=== PATIENT | female | born 1990 | race Caucasian/White ===

== ENCOUNTER 2016-11-30 15:57 | Emergency (ER) | payer OTHER ==
[2016-11-30 16:02] VITALS: BP 131/79; PULSE 83; RESP 20; TEMP 98.5
--- NOTE | 2016-11-30 16:16 | ED ---
General Adult HPI - General Chief complaint: Dental/Oral Stated complaint: Oral Pain Time Seen by Provider: 11/30/16 16:03 Source: patient, RN notes reviewed Mode of arrival: ambulatory Limitations: no limitations - History of Present Illness Initial comments: patient 26-year-old female who presents emergency room today with chief complaint of increased dental pain. Patient does admit to pain to tooth #31. Patient admits that she was on antibiotics. She states she believes it was a penicillin. She states she finished this a week ago she's been off for last 3 days and now the pain is started over the last 2 days. Patient denies drainage or discharge. She denies any other complaints or symptoms. States using ibuprofen with little relief the symptoms. Patient denies any recent fever, chills, shortness of breath, chest pain, back pain, abdominal pain, nausea or vomiting, numbness or tingling, dysuria or hematuria, constipation or diarrhea, headaches or visual changes, or any other complaints. - Related Data Previous Rx's Medication Instructions Recorded Acetaminophen-Codeine 300-30mg 1 each PO Q6H PRN #10 tablet 11/30/16 [Tylenol #3] Clindamycin HCl [Cleocin] 300 mg PO Q8H 10 Days 11/30/16 Allergies Allergy/AdvReac Type Severity Reaction Status Date / Time No Known Allergies Allergy Verified 11/30/16 16:02 Review of Systems ROS Statement: Those systems with pertinent positive or pertinent negative responses have been documented in the HPI. ROS Other: All systems not noted in ROS Statement are negative. Past Medical History Additional Past Medical History / Comment(s): migraines, psoriasis History of Any Multi-Drug Resistant Organisms: None Reported Additional Past Surgical History / Comment(s): wisdom teeth Past Psychological History: Anxiety Smoking Status: Current every day smoker Past Alcohol Use History: None Reported Past Drug Use History: None Reported General Exam - General Exam Comments Initial Comments: General: The patient is awake and alert, in no distress, and does not appear acutely ill. Eye: Pupils are equal, round and reactive to light, extra-ocular movements are intact. No nystagmus. There is normal conjunctiva bilaterally. No signs of icterus. Ears, nose, mouth and throat: There are moist mucous membranes and no oral lesions. tender palpation over tooth #31. No sign of abscess. Uvula midline and swallows without difficulty. Neck: The neck is supple, there is no tenderness or JVD. Cardiovascular: There is a regular rate and rhythm. No murmur, rub or gallop is appreciated. Respiratory: Lungs are clear to auscultation, respirations are non-labored, breath sounds are equal. No wheezes, stridor, rales, or rhonchi. Musculoskeletal: Normal ROM, no tenderness. Strength 5/5. Sensation intact. Pulses equal bilaterally 2+. Neurological: A&O x 3. CN II-XII intact, There are no obvious motor or sensory deficits. Coordination appears grossly intact. Speech is normal. Skin: Skin is warm and dry and no rashes or lesions are noted. Psychiatric: Cooperative, appropriate mood & affect, normal judgment Limitations: no limitations Course Vital Signs 11/30/16 15:59 Temperature 98.5 F Pulse Rate 83 Respiratory 20 Rate Blood Pressure 131/79 O2 Sat by Pulse 100 Oximetry Medical Decision Making - Medical Decision Making patient placed on clindamycin as she was recently on penicillin. 3 days ago. Patient will be given short prescription of Tylenol with codeine to use along with her ibuprofen. She is advised follow-up dentist over the next 2 days. Disposition Clinical Impression: Pain, dental Disposition: HOME SELF-CARE Condition: Good Instructions: Toothache (ED) Additional Instructions: Please use medication as discussed. Please follow-up with the dentist over the next 2 days. Please return to emergency room if the symptoms increase or worsen or for any other concerns. Prescriptions: Acetaminophen-Codeine 300-30mg [Tylenol #3] 1 each PO Q6H PRN #10 tablet PRN Reason: Pain Clindamycin HCl [Cleocin] 300 mg PO Q8H 10 Days Time of Disposition: 16:15
== END 2016-11-30 16:15 | disposition home or self-care (01) ==
LOC: EC 15:57
DX: K08.89 Other specified disorders of teeth and supporting structures (principal); F17.200 Nicotine dependence, unspecified, uncomplicated
CPT/HCPCS: 99282

== ENCOUNTER 2020-06-25 10:14 | Inpatient (IN) | payer OTHER ==
[2020-06-25] MEDS ORDERED: LACTATED RINGERS 1,000 ML IV ONE (11:01)
[2020-06-25] MEDS ORDERED: CITRIC ACID-SODIUM CITRATE 15 ML CUP PO ONE (11:01)
[2020-06-25 11:25] LABS: Basophils % (A) 0 %; Eosinophils % (A) 1 %; HCT 35.3 % (34.0-46.0); HGB 11.9 gm/dL (11.4-16.0); Lymphocytes # (A) 1.9 k/uL (1.0-4.8); Lymphocytes % (A) 19 %; MCH 29.5 pg (25.0-35.0); MCHC 33.7 g/dL (31.0-37.0); MCV 87.4 fL (80.0-100.0); Monocytes # (A) 0.6 k/uL (0-1.0); Monocytes % (A) 6 %; Neutrophils # (A) 7.1 k/uL (1.3-7.7); Neutrophils % (A) 73 %; Platelet Count 153 k/uL (150-450); RBC 4.03 m/uL (3.80-5.40); WBC 9.7 k/uL (3.8-10.6)
[2020-06-25] MEDS ORDERED: KETOROLAC 15 MG/ML 1 ML VIAL ONE (11:55)
[2020-06-25] MEDS ORDERED: ONDANSETRON 4 MG/2 ML VIAL ONE (11:55)
[2020-06-25] MEDS ORDERED: fentaNYL (PF) 50 MCG/ML 2 ML AMP ONE (11:55)
[2020-06-25] MEDS ORDERED: PROPOFOL 10 MG/ML 20 ML VIAL IV ONE (11:55)
[2020-06-25] MEDS ORDERED: MIDAZOLAM 2 MG/2 ML VIAL ONE (11:55)
[2020-06-25] MEDS ORDERED: NALBUPHINE 10 MG/ML (1 ML AMP) ONE (11:55)
[2020-06-25] MEDS ORDERED: MORPHINE SULFATE 2 MG/ML SYRINGE IVP PRN (12:22)
[2020-06-25] MEDS ORDERED: ONDANSETRON 4 MG/2 ML VIAL IVP PRN (12:22)
[2020-06-25] MEDS ORDERED: NALOXONE 0.4 MG/ML 1 ML VIAL IV PRN (12:22)
[2020-06-25] MEDS ORDERED: diphenhydrAMINE 50 MG/ML 1 ML VIAL IVP PRN ×2 (12:22→12:34)
--- NOTE | 2020-06-25 12:25 | P.ANPRN ---
Procedure Note - Anesthesia - Epidural/Spinal Spinal Time Out Performed: Yes Date of Procedure: 06/25/20 Procedure Start Time: 12:08 Procedure Stop Time: 12:18 Location of Patient: OB Indication: Acute Post-Operative Pain Sedation Type: Sedate with meaningful contact maintained Preparation: Sterile Dressing Position: Sitting Catheter: None Needle Guage: 25 Injectate: Other (Duramorph 300mcg) Blood Aspirated: No Pain Paresthesia on Injection Noted: No Events: Uneventful and Well Tolerated
[2020-06-25] MEDS ORDERED: ACETAMINOPHEN TAB 325 MG TAB PO PRN (12:34)
[2020-06-25] MEDS ORDERED: SIMETHICONE 80 MG CHEWABLE PO PRN (12:34)
[2020-06-25] MEDS ORDERED: diphenhydrAMINE 25 MG CAP PO PRN (12:34)
[2020-06-25] MEDS ORDERED: METOCLOPRAMIDE 5 MG/ML 2 ML VIAL IVP PRN (12:34)
[2020-06-25] MEDS ORDERED: ZOLPIDEM 5 MG TAB PO PRN (12:34)
[2020-06-25] MEDS ORDERED: diphenhydrAMINE 50 MG CAP PO PRN (12:34)
[2020-06-25] MEDS ORDERED: LANOLIN CREAM 5 GM TUBE TOPICAL PRN (12:34)
--- NOTE | 2020-06-25 12:38 | P.HPOB ---
History of Present Illness H&P Date: 06/25/20 Chief Complaint: intermittent tachycardia 29-year-old G 3 P2 presented at 37 weeks and 6 days to my office for a routine NST due to her history of an abnormal quad screen. On the NST there were some time to report sharp nurses having bradycardia or tachycardia or picking at the maternal heart rate. She was sent over to labor and delivery for prolonged monitoring. When she arrived baseline was 1:30 with moderate variability and accelerations but she does have some runs of tachycardia up to 240. Due to her gestational status and the tachycardia she will undergo a repeat low transverse with tubal ligation. Review of Systems All systems: negative Constitutional: Denies chills, Denies fever Eyes: denies blurred vision, denies pain Ears, nose, mouth and throat: Denies headache, Denies sore throat Cardiovascular: Denies chest pain, Denies shortness of breath Respiratory: Denies cough Gastrointestinal: Denies abdominal pain, Denies diarrhea, Denies nausea, Denies vomiting Genitourinary: Denies dysuria, Denies hematuria Musculoskeletal: Denies myalgias Integumentary: Denies pruritus, Denies rash Neurological: Denies numbness, Denies weakness Psychiatric: Denies anxiety, Denies depression Endocrine: Denies fatigue, Denies weight change Past Medical History Past Medical History: Asthma Additional Past Medical History / Comment(s): migraines, psoriasis. OB history: She's had 2 previous sections this is her third and she had care with me. She did have an abnormal quad screen was followed with [facility] as well. BPP was 8 out of 8 earlier this week. History of Any Multi-Drug Resistant Organisms: None Reported Past Surgical History: Section Additional Past Surgical History / Comment(s): wisdom teeth Past Anesthesia/Blood Transfusion Reactions: No Reported Reaction Past Psychological History: Anxiety Smoking Status: Current every day smoker Past Alcohol Use History: None Reported Past Drug Use History: None Reported - Past Family History Father Family Medical History: No Reported History Medications and Allergies Home Medications Medication Instructions Recorded Confirmed Type No Known Home Medications 06/25/20 06/25/20 History Allergies Allergy/AdvReac Type Severity Reaction Status Date / Time No Known Allergies Allergy Verified 06/25/20 10:36 Exam Osteopathic Statement: *. No significant issues noted on an osteopathic structural exam other than those noted in the History and Physical/Consult. Vital Signs Temp Pulse Resp BP Pulse Ox 06/25/20 11:01 97.9 F 85 18 109/73 98 Intake and Output 06/24/20 06/25/20 06/25/20 22:59 06:59 14:59 Other: Weight 70.76 kg Heart: Regular rate and rhythm Lungs: Clear to auscultation bilaterally Abdomen: Soft, nontender Extremities: Negative Homans sign Results Result Diagrams: 06/25/20 11:03 Assessment and Plan (1) tachycardia Current Visit: Yes Status: Acute Code(s): DGN2027 - SNOMED Code(s): 236241697 (2) Previous section Current Visit: Yes Status: Acute Code(s): Z98.891 - HISTORY OF UTERINE SCAR FROM PREVIOUS SURGERY SNOMED Code(s): 610071309 (3) Family planning Current Visit: Yes Status: Acute Code(s): Z30.09 - ENCOUNTER FOR OTH GENERAL CNSL AND ADVICE ON CONTRACEPTION SNOMED Code(s): 300542725 Plan: 1. RLTCS with TL 2. ammonia refrigeration worker is notified and present
--- NOTE | 2020-06-25 12:43 | P.OP ---
Date of Procedure: 06/25/20 Preoperative Diagnosis: 1. tachycardia 2. previous 3. family planning 4. abnormal quad screen Postoperative Diagnosis: 1. tachycardia 2. previous 3. family planning 4. abnormal quad Procedure(s) Performed: Repeat low transverse with tubal ligation Anesthesia: spinal Surgeon: Mell Carlos Angio Technologist #1: Michael Tee Estimated Blood Loss (ml): 300 IV fluids (ml): 500 Urine output (ml): 200 Pathology: other (Placenta, bilateral fallopian tubal segments) Condition: stable Disposition: floor Operative Findings: Viable male, Apgars 8, 9, weight 6 lbs. 8 oz. Description of Procedure: Patient was taken to the operating room where spinal anesthesia was found be adequate. She was prepped and draped in normal sterile fashion in dorsal supine position with a leftward tilt. Pfannenstiel skin incision was made the scalpel and carried through to the underlying layer of fascia with the scalpel. Fascia was incised in midline and carried bilaterally with the Alexander scissors. The superior aspect of the fascial incision was grasped with Bhanu clamps elevated and the underlying rectus muscles dissected off with the Alexander's. Attention was then turned to inferior aspect of same incision which in a similar fashion was grasped tented up and the underlying rectus muscles dissected off with the Alexander's. The rectus muscles were the midline and the peritoneum was identified tented up and entered sharply with the scalpel. The incision was extended superiorly and inferiorly with good visualization of the bladder. The bladder blade was inserted and the vesicouterine peritoneum was incised the Metzenbaums then carried bilaterally and bladder flap created digitally. A low transverse incision was then made on the uterus with the scalpel. This was carried bilaterally and digital manner. 's head delivered atraumatically, nose and mouth bulb suctioned, cord clamped and cut, handed off to waiting nurses. Apgars 8,9, weight 6 lbs. 8 oz. Placenta delivered manually, intact with three-vessel cord. The uterus is exteriorized and cleared of all clots and debris. The uterine incision was closed with 0 Vicryl in a running locked fashion. Second layer of the same sutures used in imbricating fashion to obtain excellent hemostasis. Both ovaries and tubes appeared normal. The right fallopian tube was grasped with a hemostat and a window was made in mesosalpinx. The right fallopian tube was doubly ligated and a section was removed, pedicles cauterized with the Bovie. The left fallopian tube was gras ped with a hemostat and a window was made in the mesosalpinx with the Bovie. The left fallopian tube was doubly ligated and a section was removed, pedicles cauterized with the Bovie. The uterus was placed back into the abdomen. The peritoneum was reapproximated using 2-0 Vicryl in a running fashion. The muscles were reapproximated using 2-0 Vicryl in interrupted fashion. The fascia was reapproximated using 0 Vicryl in a running fashion. The subcutaneous tissues closed with 3-0 Vicryl running fashion. The skin was closed nara. Patient tolerated the procedure well, sponge and instrument counts were correct times 2 and she was taken to the recovery room in stable condition.
[2020-06-25] MEDS ORDERED: OXYTOCIN 20 UNITS/1000 ML NS 1,000 ML IV SCH (12:45)
[2020-06-25] MEDS: LACTATED RINGERS 1,000 ML IV SCH ×2 (14:02→22:08)
[2020-06-25] MEDS: diphenhydrAMINE 50 MG/ML 1 ML VIAL IVP PRN ×2 (16:35→22:36)
[2020-06-25] MEDS: KETOROLAC 15 MG/ML 1 ML VIAL IVP SCH (18:27)
[2020-06-25] MEDS: SENNOSIDES-DOCUSATE SODIUM 1 EACH TAB PO SCH (21:10)
[2020-06-26] MEDS: KETOROLAC 15 MG/ML 1 ML VIAL IVP SCH ×2 (00:30→06:33)
[2020-06-26] MEDS ORDERED: NALBUPHINE 10 MG/ML (1 ML AMP) IM PRN (03:26)
[2020-06-26] MEDS ORDERED: NALBUPHINE 10 MG/0.5 ML (10 mL MDV) IM PRN (03:50)
--- NOTE | 2020-06-26 06:26 | P.PNOBGPC ---
Subjective - Subjective Patient reports: Reports appetite normal, Reports voiding normally, Reports pain well controlled, Reports ambulating normally : doing well Objective - Vital Signs Latest vital signs: Vital Signs Temp Pulse Resp BP Pulse Ox 06/26/20 06:21 18 06/26/20 05:00 18 06/26/20 04:00 98.2 F 78 16 104/65 97 06/26/20 03:00 18 06/26/20 01:00 18 06/26/20 00:00 98.8 F 84 16 115/74 97 06/25/20 23:00 18 06/25/20 21:00 16 06/25/20 20:00 99.0 F 76 18 107/66 99 06/25/20 19:00 18 06/25/20 17:00 16 06/25/20 15:22 16 06/25/20 14:39 98.3 F 71 16 106/62 98 06/25/20 14:09 64 16 113/66 97 06/25/20 13:37 97.4 F L 63 16 106/70 98 06/25/20 13:23 61 16 106/68 98 06/25/20 13:14 16 98 06/25/20 13:09 66 16 106/66 98 06/25/20 12:54 72 16 101/56 97 06/25/20 12:39 96.9 F L 77 16 95/68 97 06/25/20 11:01 97.9 F 85 18 109/73 98 Intake and Output 06/25/20 06/25/20 06/26/20 14:59 22:59 06:59 Output Total 1100 950 Balance -1100 -950 Output: Urine 1100 950 Uretheral (Collazo) 100 600 Other: Voiding Method Toilet Toilet # Voids 0 # Bowel Movements 0 Weight 70.76 kg - Exam Lungs: bilateral: normal Chest: Normal S1, Normal S2 Extremities: Present: normal Abdomen: Present: normal appearance, soft. Absent: distention, tenderness Incision: Present: normal, dry, intact Uterus: Present: normal, firm Assessment and Plan Assessment: Postoperative day #1. Patient is resting. Her only complaint is itching which is most likely from her Duramorph. Vital signs are stable and she is afebrile. Incision is intact and dry. Uterus is firm nontender she is having normal lochia. CBC is pending. Plan today is to continue routine care, check a CBC, encourage ambulation, and advance to a regular diet. (1) delivery delivered Current Visit: Yes Status: Acute Code(s): O82 - ENCOUNTER FOR DELIVERY WITHOUT INDICATION SNOMED Code(s): 704070435
[2020-06-26 06:33] LABS: Basophils % (A) 0 %; Eosinophils # (A) 0.1 k/uL (0-0.7); Eosinophils % (A) 1 %; HCT 26.5 % (34.0-46.0); Lymphocytes % (A) 23 %; MCH 30.8 pg (25.0-35.0); MCHC 34.9 g/dL (31.0-37.0); MCV 88.3 fL (80.0-100.0); Mean Platelet Volume 10.1; Monocytes # (A) 0.6 k/uL (0-1.0); Monocytes % (A) 7 %; Neutrophils # (A) 5.8 k/uL (1.3-7.7); Neutrophils % (A) 67 %; Platelet Count 111 k/uL (150-450); RDW 13.9 % (11.5-15.5); WBC 8.7 k/uL (3.8-10.6)
[2020-06-26 06:49] LABS: HGB 9.3 gm/dL (11.4-16.0)
--- NOTE | 2020-06-26 09:03 | P.PN ---
Progress Note - Text Progress Note Date: 06/26/20 (763) Anesthesia Postop day 1 Subjective: Status Post section with Duramorph. Patient seen and examined. Doing well without complaint. VAS 8 out of 10, just received some more medicine and was controlled overnight. No nausea or vomiting. Mild pruritus tolerable.. Afebrile. Gross lower extremity strength intact. Without apparent anesthetic complications. Objective: Vital signs reviewed Heart: Regular Rate Lungs: Good chest excursion Abdomen: Appears nondistended Assessment: Status post with Duramorph postop day 1 Plan: Continue current care with your medical management.
[2020-06-26] MEDS: HYDROcodone/APAP 7.5-325MG 1 EACH TAB PO PRN ×3 (09:51→23:03)
[2020-06-26] MEDS: SENNOSIDES-DOCUSATE SODIUM 1 EACH TAB PO SCH ×2 (09:51→20:26)
[2020-06-26] MEDS: IBUPROFEN 600 MG TAB PO PRN (20:25)
[2020-06-27] MEDS: IBUPROFEN 600 MG TAB PO PRN ×2 (02:30→08:43)
[2020-06-27] MEDS: HYDROcodone/APAP 7.5-325MG 1 EACH TAB PO PRN ×2 (05:36→11:34)
--- NOTE | 2020-06-27 06:27 | P.PNOBGPC ---
Subjective - Subjective Patient reports: Reports appetite normal, Reports voiding normally, Reports pain well controlled, Reports ambulating normally : doing well Objective - Vital Signs Latest vital signs: Vital Signs Temp Pulse Resp BP Pulse Ox 06/26/20 23:45 98.1 F 74 18 104/66 96 06/26/20 15:54 98.4 F 81 16 119/79 99 06/26/20 08:00 98.8 F 73 16 99/69 Intake and Output 06/26/20 06/26/20 06/27/20 14:59 22:59 06:59 Output Total 500 Balance -500 Output: Urine 500 Other: # Voids 2 1 - Exam Lungs: bilateral: normal Chest: Normal S1, Normal S2 Extremities: Present: normal Abdomen: Present: normal appearance, soft. Absent: distention, tenderness Incision: Present: normal, dry, intact Uterus: Present: normal, firm - Labs Labs: Abnormal Lab Results - Last 24 Hours (Table) 06/26/20 Range/Units 06:25 RBC 3.00 L (3.80-5.40) m/uL Hgb 9.3 L D (11.4-16.0) gm/dL Hct 26.5 L (34.0-46.0) % Plt Count 111 L (150-450) k/uL Assessment and Plan Assessment: Postoperative day #2. Patient is resting without new complaints. She wishes to go home today. CBC yesterday showed her hemoglobin be 9.2 which I feel is appropriate however her platelets were 111. Prior to her her platelets were 153. She is not having any excessive or abnormal bleeding. Vital signs are stable and she is afebrile. Her incision is intact and dry. Patient is tolerating regular diet, urinating, ambulating without difficulty. Plan today is to check a CBC and if it appears that her platelets are stable or improving then I believe she will be stable for discharge home follow up with Dr. Carlos in 1 week. I did tell her for platelets for less than 100 I would like her to stay to have a repeat CBC in the morning. (1) delivery delivered Current Visit: Yes Status: Acute Code(s): O82 - ENCOUNTER FOR DELIVERY WITHOUT INDICATION SNOMED Code(s): 660066183
[2020-06-27 06:29] LABS: Basophils % (A) 0 %; Eosinophils # (A) 0.1 k/uL (0-0.7); Eosinophils % (A) 1 %; HCT 27.6 % (34.0-46.0); HGB 9.5 gm/dL (11.4-16.0); Lymphocytes # (A) 1.7 k/uL (1.0-4.8); Lymphocytes % (A) 22 %; MCH 30.5 pg (25.0-35.0); MCHC 34.3 g/dL (31.0-37.0); MCV 88.9 fL (80.0-100.0); Monocytes # (A) 0.5 k/uL (0-1.0); Monocytes % (A) 6 %; Neutrophils # (A) 5.4 k/uL (1.3-7.7); Neutrophils % (A) 68 %; Platelet Count 132 k/uL (150-450); RBC 3.11 m/uL (3.80-5.40); WBC 7.9 k/uL (3.8-10.6)
--- NOTE | 2020-06-27 06:40 | P.DS ---
Providers Date of admission: 06/25/20 10:46 Expected date of discharge: 06/27/20 Attending physician: Mell Carlos Primary care physician: Stated None - Discharge Diagnosis(es) (1) delivery delivered Current Visit: Yes Status: Acute Hospital Course: Please see dictated H&P for intimate details of this patient's admission. Brief summary this is a pleasant 29-year-old 3 para 2 female status post repeat section and tubal ligation by Dr. Carlos on June 25. Patient was admitted and underwent above-named surgeries. Please see dictated operative note. Postoperatively the patient did well and on postoperative 2 she felt be stable for discharge home follow up for an incision check in 1 week. Of note her platelets did decrease postoperative day #1 and the are pending at time of this dictation but I discussed this also with her and the need for follow-up platelet count the future as well. Procedures: Repeat low transverse section and bilateral partial salpingectomy Patient Condition at Discharge: Good Plan - Discharge Summary New Discharge Prescriptions: New Ibuprofen [Motrin] 600 mg PO Q6HR PRN #40 tab PRN Reason: Mild Pain Or Fever >= 100.5 HYDROcodone/APAP 7.5-325MG [[place] 7.5-325] 1 each PO Q6H PRN #18 tab PRN Reason: Severe Pain Discharge Medication List HYDROcodone/APAP 7.5-325MG [[place] 7.5-325] 1 each PO Q6H PRN #18 tab 06/27/20 [Rx] Ibuprofen [Motrin] 600 mg PO Q6HR PRN #40 tab 06/27/20 [Rx] Follow up Appointment(s)/Referral(s): Mell Carlos DO [Doctor of Osteopathic Medicine] - 1 Week Patient Instructions/Handouts: (DC) Activity/Diet/Wound Care/Special Instructions: No heavy lifting or strenuous activity for 6 weeks. No intercourse or anything per vagina for 6 weeks. Please call if any fever, chills, excessive vaginal bleeding, and/or abdominal pain Discharge Disposition: HOME SELF-CARE
[2020-06-27] MEDS: SENNOSIDES-DOCUSATE SODIUM 1 EACH TAB PO SCH (08:43)
[2020-06-27 08:55] VITALS: BP 115/68; PULSE 71; RESP 16; TEMP 98.2
== END 2020-06-27 12:04 | disposition home or self-care (01) | DRG 784 ==
LOC: FBPOP 10:14 → 4FBP 10:46
PROVIDERS: ADMIT Obstetrics & Gynecology; ATTEND Obstetrics & Gynecology
PROC: 10D00Z1 Extraction of Products of Conception, Low, Open Approach (ICD-10-PCS; principal; 2020-06-25 12:08)
PROC: 0UB70ZZ Excision of Bilateral Fallopian Tubes, Open Approach (ICD-10-PCS; principal; 2020-06-25 12:08)
DX: O76 Abnormality in fetal heart rate and rhythm complicating labor and delivery (principal); O99.354 Diseases of the nervous system complicating childbirth; O34.211 Maternal care for low transverse scar from previous cesarean delivery; O99.72 Diseases of the skin and subcutaneous tissue complicating childbirth; O99.334 Smoking (tobacco) complicating childbirth; O99.62 Diseases of the digestive system complicating childbirth; K21.9 Gastro-esophageal reflux disease without esophagitis; L40.9 Psoriasis, unspecified; F17.200 Nicotine dependence, unspecified, uncomplicated; L29.9 Pruritus, unspecified; G43.909 Migraine, unspecified, not intractable, without status migrainosus; Z30.2 Encounter for sterilization; Z37.0 Single live birth; Z3A.37 37 weeks gestation of pregnancy; Z87.09 Personal history of other diseases of the respiratory system
CPT/HCPCS: 59025; 85025; 86850; 86900; 86901